=== PATIENT | female | born 1985 | race Caucasian/White ===

== ENCOUNTER 2021-04-03 17:25 | Outpatient (REF) | payer MEDICAID, SELFPAY ==
[2021-04-03 20:54] LABS: HCT 41.9 % (36.0-46.0); HGB 14.1 g/dL (11.2-15.7); MCH 30.7 pg (27.0-33.0); MCHC 33.7 % (32.0-36.0); MCV 91.3 fL (80-95); MPV 11.5 fL (8.0-11.0); Platelet Count 295 10^3/uL (130-400); RBC 4.59 10^6/uL (3.93-5.22); RDW-SD 40.5 fL; WBC 11.91 10^3/uL (4.4-10.8)
[2021-04-03 21:07] LABS: Iron 98 ug/dL (50-170); Total Iron Binding Capacity 267 ug/dL (250-450); Transferrin Sat 37 % (15-50)
[2021-04-03 21:18] LABS: TSH 0.53 uIU/mL (0.36-3.74)
== END 2021-04-03 17:26 | disposition home or self-care (01) ==
LOC: NCHCN 17:25
PROVIDERS: PCP Internal Medicine; Visit Provider Internal Medicine
DX: Z00.00 Encounter for general adult medical examination without abnormal findings (principal); N92.1 Excessive and frequent menstruation with irregular cycle; D17.20 Benign lipomatous neoplasm of skin and subcutaneous tissue of unspecified limb; F17.200 Nicotine dependence, unspecified, uncomplicated
CPT/HCPCS: 85027; 83540; 83550; 84443